=== PATIENT | male | born 1950 | race Caucasian/White ===

== ENCOUNTER 2022-06-29 06:58 | Emergency (ER) | payer MEDICARE, BC ==
[~2022-06-29] VITALS: Ht 180.3 cm; Wt 95.5 kg
[2022-06-29 07:04] VITALS: BP 165/106
--- NOTE | 2022-06-29 09:38 | NUR ---
RECEIVED VERBAL ORDERS FROM [facility] FOR TORADOL 30MG IM X1 DOSE NOW, 4MG MORPHINE IM X1 DOSE NOW, AND 60MG NORFLEX IM X1 DOSE NOW. ORDERS PLACED RECEIVED
[2022-06-29] MEDS ORDERED: orphenadrine citrate 60mg/2ml inj. IM ONE (09:40)
[2022-06-29] MEDS ORDERED: morphine 4 MG/ML inj SYRINge IM ONE (09:40)
[2022-06-29] MEDS ORDERED: ketorolac trometh. 30mg/ml inj. IM ONE (09:40)
[2022-06-29] MEDS ORDERED: ACET-2006 PO (09:45)
[2022-06-29] MEDS ORDERED: TRAM50TA2 PO (09:45)
[2022-06-29] MEDS ORDERED: CYCL-394 PO (15:13)
== END 2022-06-29 10:50 | disposition home or self-care (01) ==
LOC: ER 06:58
DX: M54.50 Low back pain, unspecified (principal); I10 Essential (primary) hypertension; E03.9 Hypothyroidism, unspecified
CPT/HCPCS: 96372; 99284; J1885; J2270; J2360